=== PATIENT | male | born 1960 | race Caucasian/White ===

== ENCOUNTER 2016-06-26 09:47 | Emergency (ER) | payer OTHER ==
[~2016-06-26] VITALS: Ht 170.2 cm; Wt 74.1 kg
[2016-06-26] MEDS ORDERED: ATARAX,VISTARIL50 MG PO (11:21)
[2016-06-26 11:49] VITALS: BP 132/62
== END 2016-06-26 11:50 | disposition home or self-care (01) ==
LOC: EME 09:47
DX: R21 Rash and other nonspecific skin eruption (principal); L29.9 Pruritus, unspecified; R22.0 Localized swelling, mass and lump, head; R11.0 Nausea; F17.200 Nicotine dependence, unspecified, uncomplicated
CPT/HCPCS: 99281; 99283; J1100; Q0177